=== PATIENT | female | born 1945 | race Caucasian/White ===

== ENCOUNTER 2018-02-24 18:22 | Inpatient (IN) | payer MEDICARE, OTHER ==
[2018-02-24] VITALS: BP 201/210
[~2018-02-24] VITALS: Ht 157.5 cm; Wt 111.6 kg
--- NOTE | 2018-02-24 18:30 | NUR ---
NEW IV STARTED ON LEFT FA, 20G. BLOOD DRAWN AND SENT TO LAB
--- NOTE | 2018-02-24 18:41 | NUR ---
LEATHER COVERER AT BEDSIDE.
--- NOTE | 2018-02-24 18:42 | NUR ---
PATIENT TAKEN TO CT VIA STRETCHER.
[2018-02-24 18:47] LABS: BASOPHILS # (AUTO) 0.2 /CMM (0.0-0.2); BASOPHILS % (AUTO) 1.3 % (0.0-2.0); EOSINOPHILS % (AUTO) 1.1 % (0.0-6.0); HEMATOCRIT 42 % (33-45); LYMPHOCYTES # (AUTO) 1.8 /CMM (0.8-4.8); LYMPHOCYTES % (AUTO) 15.2 % (20.0-44.0); MEAN CORPUSCULAR HGB CONC 34 g/dl (31.0-36.0); MEAN CORPUSCULAR VOLUME 92 fL (82-100); MONOCYTES # (AUTO) 0.8 /CMM (0.1-1.30); MONOCYTES % (AUTO) 6.5 % (2.0-12.0); NEUTROPHILS # (AUTO) 9.1 /CMM (1.8-8.9); NEUTROPHILS % (AUTO) 75.9 % (43.0-81.0); PLATELET COUNT (AUTO) 349 /CMM (150-450); RDW COEFFICIENT OF VARIATION 13.6 (11.5-15.0); RED BLOOD CELL COUNT(AUTO) 4.52 MIL/uL (4.0-5.2)
--- NOTE | 2018-02-24 18:58 | NUR ---
PATIENT RETURNED FROM CT IN STABLE CONDITION.
[2018-02-24 19:01] LABS: CALCIUM, SERUM 9.8 mg/dL (8.5-10.1); CARBON DIOXIDE 30 mmol/L (21-32); CHLORIDE 100 mmol/L (98-107); CREATININE 1.1 mg/dL (0.6-1.3); GLUCOSE 331 mg/dL (74-106); POTASSIUM 4.2 mmol/L (3.5-5.1); SODIUM SERUM 138 mmol/L (136-145); UREA NITROGEN, BLOOD 27 mg/dL (7-18)
[2018-02-24 19:07] LABS: ALANINE AMINOTRANSFERASE 27 U/L (12-78); ALBUMIN 3.9 g/dL (3.4-5.0); ALKALINE PHOSPHATASE 118 U/L (46-116); ASPARTATE AMINOTRANSFERASE 17 U/L (15-37); BILIRUBIN,DIRECT 0.1 mg/dL (0.0-0.2); BILIRUBIN,TOTAL 0.6 mg/dL (0.2-1.0); TOTAL PROTEIN, SERUM 7.8 g/dL (6.4-8.2)
[2018-02-24 19:08] LABS: TROPONIN I < 0.017 ng/mL (0.00-0.056)
--- NOTE | 2018-02-24 19:10 | NUR ---
URINE OBTAINED AND SENT TO LAB.
--- NOTE | 2018-02-24 19:19 | NUR ---
PER DR. HERBERT, CANCEL MEDEIROS CATH. NOT REQUIRED TO COLLECT URINE AT THIS TIME.
--- NOTE | 2018-02-24 19:20 | NUR ---
REPORT GIVEN TO RAY FOR JOSSELYN.
[2018-02-24 19:21] LABS: INR 0.96 (0.87-1.13)
[2018-02-24] MEDS ORDERED: INSULIN REGULAR, HUMAN 100 UNIT/ML 10 ML VIAL SQ ONE (19:30)
--- NOTE | 2018-02-24 19:47 | NUR ---
EDDIE PAGED, DR.SAM Cook HIDE SELECTOR
[2018-02-24] MEDS ORDERED: INSULIN REGULAR, HUMAN 100 UNIT/ML 10 ML VIAL ONE (19:55)
[2018-02-24] MEDS ORDERED: ASPIRIN 325 MG TABLET ONE (19:55)
[2018-02-24] MEDS ORDERED: ASPIRIN 325 MG TABLET PO ONE (20:00)
--- NOTE | 2018-02-24 20:02 | NUR ---
PT REC'D MEDICATION ORDERED.
--- NOTE | 2018-02-24 20:22 | NUR ---
PT'S CAREGIVER, RAFA, MOISE. PT IS ON THE MONITOR AND CONTINUOUS PULSE OX.
[2018-02-24 20:51] LABS: THYROID STIMULATING HORMONE 2.758 uIU/mL (0.358-3.74)
[2018-02-24] MEDS ORDERED: ACETAMINOPHEN 325 MG TABLET PO PRN (21:00)
[2018-02-24] MEDS ORDERED: MAG HYDROX/AL HYDROX/SIMETH 30 ML UDC PO PRN (21:00)
--- NOTE | 2018-02-24 21:11 | NUR ---
REPORT GIVEN TO TELE NURSE.
[2018-02-24 21:30] VITALS: BP 203/214
--- NOTE | 2018-02-24 21:30 | NUR ---
ADMISSION NOTES: KRISTY WELLINGTON RECEIVED REPORT FROM RAY FROM ER . PT BEING ADMITTED FOR TIA, PT WAS BROUGHT TO THE UNIT VIA GURNEY, A/O X3 ON RA RESPIRATION EVEN AND UNLABORED. LFA IV ACCESS PATENT AND FLUSHING WELL, ON HL. PT NOTED TO HAVE RIGHT FACIAL DROOP, PT USES GLASSES FOR READING. VS TAKEN AND RECORDED. BED BATH PROVIDED TO THE PT, SKIN ASSESSMENT PERFORMED WITH KRISTY WELLINGTON. PLACED ON TELE MONITORING, NEW ONSET AFIB HR 85. ORIENTED PT TO UNIT POLICY AND HOURLY ROUNDING, AND USE OF CALL LIGHT. INVENTORY OF BELONGING COMPLETED BY CUSTOMER DEVELOPMENT MANAGER, FOUND 6MEDICATION BOTTLES, PT AGREE TO SEND IT TO PHARMACY. PT DENIES ANY CHEST PAIN OR DISCOMFORT AT THIS TIME. WT TAKEN USING BED SCALE 246.2LBS. HR 5FT 2INCHES. PT LIVES WITH FAMILY AND USES WALKER ASSISTIVE DEVICE. PT ABLE TO AMBULATE WITH ASSISTANCE. SAFETY PRECAUTIONS FOR FALL INITIATED, CALL LIGHT IN REACH, WILL CONTINUE MONITORING PT. Addendum: 02/25/18 at 0223 by SEAN GRIMM RN CORRECTION OF ENTRY: LEFT FACIAL DROOP THAT ACCORDING TO THE PT, IS BEEN AN ISSUE FROM THE PAST
--- NOTE | 2018-02-24 21:31 | NUR ---
ADMISSION NOTES: KRISTY WELLINGTON RECEIVED REPORT FROM RAY FROM ER . PT BEING ADMITTED FOR TIA, PT WAS BROUGHT TO THE UNIT VIA GURNEY, A/O X3 ON RA RESPIRATION EVEN AND UNLABORED. LFA IV ACCESS PATENT AND FLUSHING WELL, ON HL. PT NOTED TO HAVE LEFT FACIAL DROOP, BUT PT CLAIMED SHE HAS IT FROM BEFORE, SPEECH A LOT BETTER, NOT SLURRED, NO WEAKNESS ON ARMS OR LEG NOTED,PT USES GLASSES FOR READING. VS TAKEN AND RECORDED. BED BATH PROVIDED TO THE PT, SKIN ASSESSMENT PERFORMED WITH KRISTY WELLINGTON. PLACED ON TELE MONITORING, NEW ONSET AFIB HR 85. ORIENTED PT TO UNIT POLICY AND HOURLY ROUNDING, AND USE OF CALL LIGHT. INVENTORY OF BELONGING COMPLETED BY MANAGER DATA WAREHOUSING, FOUND 6MEDICATION BOTTLES, PT AGREE TO SEND IT TO PHARMACY. PT DENIES ANY CHEST PAIN OR DISCOMFORT AT THIS TIME. WT TAKEN USING BED SCALE 246.2LBS. HR 5FT 2INCHES. PT LIVES WITH FAMILY AND USES WALKER ASSISTIVE DEVICE. PT ABLE TO AMBULATE WITH ASSISTANCE. SAFETY PRECAUTIONS FOR FALL INITIATED, CALL LIGHT IN REACH, WILL CONTINUE MONITORING PT.
[2018-02-24 21:48] VITALS: BP 200/112
[2018-02-24] MEDS: ENOXAPARIN SODIUM 40 MG/0.4 ML DISP.SYRIN SQ SCH (21:48)
--- NOTE | 2018-02-24 21:50 | NUR ---
RN NOTES: PT'S BLOOD PRESSURE NOTED TO BE ELEVATED 200/112 HR 83, 98% ON RA, RR 18, 98.2 TEMP, WILL RECHECK PT'S BLOOD PRESSURE
--- NOTE | 2018-02-24 21:50 | NUR ---
RN NOTES; CHECKED PT'S HOME MED LIST, NONE WAS ENTERED IN THE COMPUTER, ASKED DOWEL POINTER WHAT IS THE REPORT FROM RAY, PER DOWEL POINTER ACCORDING TO [employer] ASSEMBLY MACHINE TENDER, THEY'RE NOT ABLE TO ENTER MEDICATION LIST OF THE PT BECAUSE "THEY ARE BUSY IN ER AND THERE'S ONLY 3STAFF".
[2018-02-24] MEDS ORDERED: BLOOD SUGAR DIAGNOSTIC 1 EACH STRIP IN SCH (22:00)
--- NOTE | 2018-02-24 22:00 | NUR ---
RECEIVED PT FROM FROM [facility] AT 2200, PT IS HARSHA, ON BED WITH ON GOING DIRECTOR WRITING AT BED SIDE. ABLE TO BRIEFLY TALK TO THE PT AOX3 LAUGHING WELL SMILING, BP UPON ADMITTION 203/214, 81 RR 18 98% AND 98.6 TEMP. DENIES ANY SOB OR CHEST PAIN, NO DIFFICULTY WITH SWALLOWING, ABLE TO TAKE PO MEDS ORDERED BY DR PAEZ. ELEVATED BP REPORTED TO DR PAEZ BY ALIX WITH ORDER TO GIVE CLONODINE 0.1 MG. ASSESSED PT LEFT EYE APPEAR LAZY LOOKING IN THE RIGHT DIRECTION. BUT ABLE TO REFOCUS BOTH EYES TO FOLLOW COMMAND, NO FACIAL DROOP NOTED, BUE AND BLE WNR EVEN STRENGTH BILATERALLY. PT AMBULATORY WILL CONT TO MONITOR.
[2018-02-24] MEDS ORDERED: LABE200T5 PO (22:01)
[2018-02-24] MEDS ORDERED: AMYL1CAP58 PO (22:01)
[2018-02-24] MEDS ORDERED: GLIM4TAB2 PO (22:01)
[2018-02-24] MEDS ORDERED: TRIA1CAP6 PO (22:01)
[2018-02-24] MEDS ORDERED: LINA5TAB PO (22:01)
[2018-02-24] MEDS ORDERED: VALS160T2 PO (22:01)
--- NOTE | 2018-02-24 22:02 | NUR ---
RN NOTES: ALL HOME MED LIST INPUTTED IN PT'S MAR FOR MD TO RECONCILE
--- NOTE | 2018-02-24 22:15 | NUR ---
RN NOTES: NO BP MEDICATION GIVEN IN ER, ALTHOUGH PT'S BP NOTED TO BE 220/118, 188/108, PER REPORT THAT EAP COUNSELOR RECEIVED LOWEST BP GOT IN ER WAS AROUND 160. BUT NO INTERVENTION GIVEN TO MANAGE BLOOD PRESSURE. WILL CALL [facility] ORGAN FIXER
--- NOTE | 2018-02-24 22:20 | NUR ---
RN NOTES: CONTACTED [facility] TEACHING MANAGER, REGARDING PT'S BLOOD PRESSURE, AND BS 249, AWAITING FOR CALL BACK
--- NOTE | 2018-02-24 22:29 | NUR ---
RN NOTES: RECEIVED CALL FROM [facility] MANAGER COMMER[employer], PER MD TO ADMIT PT IN TELE-TD, GIVE CLONIDINE 0.1MG TAB PO Q6HRS PRN FOR SBP GREATER THAN 180, ALSO MADE AWARE OF BLOOD SUGAR 249, PER MD TO START PT ON INSULIN MILD SLIDING SCALE ACHS
[2018-02-24] MEDS ORDERED: DEXTROSE 50%-WATER 50 ML DISP.SYRIN IV PRN (22:30)
--- NOTE | 2018-02-24 22:40 | NUR ---
RN NOTES: PT IN BED, CAROTID DUPLEX IMAGING BEING PERFORMED, PT DENIES ANY PAIN OR DISCOMFORT AT THIS TIME. RESPIRATION EVEN AND UNLABORED. ON NEW ONSET AFIB HR 85. REPORT GIVEN TO ALEXIS WAGNER FOR CONTINUITY OF CARE
[2018-02-24 23:04] LABS: BASOPHILS # (AUTO) 0.1 /CMM (0.0-0.2); BASOPHILS % (AUTO) 0.5 % (0.0-2.0); EOSINOPHILS % (AUTO) 1.2 % (0.0-6.0); HEMATOCRIT 41 % (33-45); HEMOGLOBIN 13.7 g/dL (11.5-14.8); LYMPHOCYTES % (AUTO) 17.5 % (20.0-44.0); MEAN CORPUSCULAR HGB CONC 34 g/dl (31.0-36.0); MEAN CORPUSCULAR VOLUME 92 fL (82-100); MONOCYTES # (AUTO) 0.8 /CMM (0.1-1.30); MONOCYTES % (AUTO) 7.2 % (2.0-12.0); NEUTROPHILS # (AUTO) 8.5 /CMM (1.8-8.9); NEUTROPHILS % (AUTO) 73.6 % (43.0-81.0); PLATELET COUNT (AUTO) 336 /CMM (150-450); RDW COEFFICIENT OF VARIATION 13.8 (11.5-15.0); RED BLOOD CELL COUNT(AUTO) 4.47 MIL/uL (4.0-5.2); WHITE BLOOD COUNT (AUTO) 11.6 K/uL (4.3-11.0)
[2018-02-24 23:14] LABS: CALCIUM, SERUM 9.8 mg/dL (8.5-10.1); CARBON DIOXIDE 31 mmol/L (21-32); CHLORIDE 102 mmol/L (98-107); GLUCOSE 178 mg/dL (74-106); POTASSIUM 3.8 mmol/L (3.5-5.1); SODIUM SERUM 138 mmol/L (136-145); UREA NITROGEN, BLOOD 26 mg/dL (7-18)
[2018-02-24] MEDS: SIMVASTATIN 40 MG TABLET PO SCH (23:15)
[2018-02-24] MEDS: CLONIDINE HCL 0.1 MG TABLET PO PRN (23:21)
[2018-02-24 23:26] LABS: ALANINE AMINOTRANSFERASE 28 U/L (12-78); ALBUMIN 3.8 g/dL (3.4-5.0); ALKALINE PHOSPHATASE 108 U/L (46-116); ASPARTATE AMINOTRANSFERASE 18 U/L (15-37); B-TYPE NATRIURETIC PEPTIDE 1150 PG/ML (0-125); BILIRUBIN,TOTAL 0.5 mg/dL (0.2-1.0); TOTAL PROTEIN, SERUM 7.6 g/dL (6.4-8.2)
[2018-02-24] MEDS: BLOOD SUGAR DIAGNOSTIC 1 EACH STRIP IN SCH (23:26)
[2018-02-24 23:27] LABS: CHOLESTEROL 238 mg/dL (<200); CREATINE KINASE, TOTAL 48 U/L (26-192); HDL CHOLESTEROL 50 mg/dL (40-60); LDL 164 mg/dL (0-99); THYROID STIMULATING HORMONE 2.847 uIU/mL (0.358-3.74); TRIGLYCERIDES 99 mg/dL (30-150)
[2018-02-24 23:30] LABS: INR 0.97 (0.87-1.13)
[2018-02-24 23:54] LABS: APPEARANCE,URINE CLEAR (CLEAR); BILIRUBIN,URINE NEGATIVE (NEGATIVE); BLOOD, URINE NEGATIVE Ery/uL (NEGATIVE); COLOR,URINE YELLOW (YELLOW); KETONES,URINE NEGATIVE (NEGATIVE); LEUKOCYTE ESTERASE ,URINE NEGATIVE (NEGATIVE); NITRITE, URINE POSITIVE (NEGATIVE); PROTEIN,URINE NEGATIVE (NEGATIVE); UGLUCOSE 2+ mg/dL (NEGATIVE); UROBILINOGEN,URINE 0.2 EU/dL (0.2)
[2018-02-24 23:59] LABS: BACTERIA,URINE Many /HPF (None Seen); RBC,URINE 0-2 /HPF (0-2); SQUAMOUS EPITHELIAL CELL,UR Few /HPF (None Seen)
[2018-02-25] VITALS: BP 203/214
[2018-02-25] MEDS ORDERED: BLOOD SUGAR DIAGNOSTIC 1 EACH STRIP IN SCH
[2018-02-25 04:00] VITALS: BP 149/83
[2018-02-25 06:31] LABS: BASOPHILS # (AUTO) 0.1 /CMM (0.0-0.2); BASOPHILS % (AUTO) 0.6 % (0.0-2.0); EOSINOPHILS % (AUTO) 2.2 % (0.0-6.0); HEMATOCRIT 38 % (33-45); HEMOGLOBIN 12.9 g/dL (11.5-14.8); LYMPHOCYTES # (AUTO) 2.2 /CMM (0.8-4.8); LYMPHOCYTES % (AUTO) 20.4 % (20.0-44.0); MEAN CORPUSCULAR HGB CONC 34 g/dl (31.0-36.0); MEAN CORPUSCULAR VOLUME 91 fL (82-100); NEUTROPHILS # (AUTO) 7.3 /CMM (1.8-8.9); NEUTROPHILS % (AUTO) 67.8 % (43.0-81.0); PLATELET COUNT (AUTO) 309 /CMM (150-450); RDW COEFFICIENT OF VARIATION 13.8 (11.5-15.0); WHITE BLOOD COUNT (AUTO) 10.8 K/uL (4.3-11.0)
--- NOTE | 2018-02-25 06:33 | NUR ---
RN HARSHA CLOSING NOTE ENDORSED PT TO AM SHIFT NURSE, NATHAN WNR, CONT ON RM AIR, DENIES ANY DISCOMFORT OR PAIN, ASSESSED FOR DEFICITS R/T STROKE, NON NOTED, SEEN BY DR PAEZ AND ASSESSED, NO DEFICITS NOTED, WILL ENDORSE TO AM SHIFT TO CONT MONITORING PT BP AND BLOOD SUGAR. SAFETY MEASURES IN PLACE.
[2018-02-25 06:57] LABS: INR 1.02 (0.87-1.13)
[2018-02-25 07:23] LABS: CALCIUM, SERUM 9.1 mg/dL (8.5-10.1); CARBON DIOXIDE 29 mmol/L (21-32); CHLORIDE 103 mmol/L (98-107); CREATININE 0.9 mg/dL (0.6-1.3); GLUCOSE 112 mg/dL (74-106); POTASSIUM 3.5 mmol/L (3.5-5.1); SODIUM SERUM 141 mmol/L (136-145); UREA NITROGEN, BLOOD 24 mg/dL (7-18)
[2018-02-25 07:26] LABS: CHOLESTEROL 214 mg/dL (<200); HDL CHOLESTEROL 68 mg/dL (40-60); LDL 151 mg/dL (0-99); TRIGLYCERIDES 104 mg/dL (30-150)
[2018-02-25] MEDS: BLOOD SUGAR DIAGNOSTIC 1 EACH STRIP IN SCH ×4 (07:30→22:00)
--- NOTE | 2018-02-25 07:30 | NUR ---
RN HARSHA Received Pt.in bed asleep, No s/s of distress breathing even and unlabored on room air,On stroke monitoring.will continue to monitor for changes.I.V site CDI and patent.
[2018-02-25 08:00] VITALS: BP 166/96
[2018-02-25] MEDS: PANTOPRAZOLE 40 MG TABLET.DR PO SCH (08:39)
[2018-02-25] MEDS: DOCUSATE SODIUM 100 MG CAPSULE PO SCH (08:39)
[2018-02-25] MEDS: LINAGLIPTIN 5 MG TABLET PO SCH (08:39)
[2018-02-25] MEDS: ASPIRIN EC 325 MG TABLET.DR PO SCH (08:39)
[2018-02-25] MEDS: GLIMEPIRIDE 4 MG TABLET PO SCH (08:40)
[2018-02-25] MEDS: VALSARTAN 80 MG TABLET PO SCH (08:40)
[2018-02-25 12:00] VITALS: BP 170/95
[2018-02-25 16:00] VITALS: BP 182/93
[2018-02-25] MEDS: CLONIDINE HCL 0.1 MG TABLET PO PRN (17:22)
--- NOTE | 2018-02-25 19:40 | NUR ---
RN HARSHA INITIAL NOTE Received Pt.in bed asleep, No s/s of distress breathing even and unlabored on room air,On stroke monitoring.will continue to monitor for changes.I.V site CDI and patent.
--- NOTE | 2018-02-25 19:49 | NUR ---
PT. is stable condition.no s/s of distress.V/S WNL .Endorsed to next shift.All m.d orders noted and carried out.
[2018-02-25 20:00] VITALS: BP 153/86
[2018-02-25] MEDS: SIMVASTATIN 40 MG TABLET PO SCH (21:35)
[2018-02-25] MEDS: ENOXAPARIN SODIUM 40 MG/0.4 ML DISP.SYRIN SQ SCH (21:39)
[2018-02-25] MEDS: INSULIN REGULAR, HUMAN 100 UNIT/ML 3 ML VIAL SQ PRN (21:47)
--- NOTE | 2018-02-25 22:15 | NUR ---
2215 NOTED MRI BRAIN RESULTS NOT REPORTED TO DR OLIVEIRA, CALLED MD'S OFFICE AND EXCHANGE TO REPORT RESULTS, ONLY VOICE MAIL . CALLED [facility] SPOKE TO DR PAEZ WHO HAPPEN TO HAVE ADMITTED THE PT, READ MRI RESULTS TO HIM, SUGGESTED FOR LONG NO DEFICITS NOTED, CONT TO MONITOR.
[2018-02-26] VITALS: BP 152/76
[2018-02-26 04:00] VITALS: BP 169/72
[2018-02-26] MEDS: CLONIDINE HCL 0.1 MG TABLET PO PRN ×2 (05:24→20:36)
[2018-02-26 06:20] LABS: BASOPHILS % (AUTO) 0.5 % (0.0-2.0); EOSINOPHILS % (AUTO) 1.9 % (0.0-6.0); HEMATOCRIT 39 % (33-45); HEMOGLOBIN 13.5 g/dL (11.5-14.8); LYMPHOCYTES # (AUTO) 2.3 /CMM (0.8-4.8); LYMPHOCYTES % (AUTO) 22.4 % (20.0-44.0); MEAN CORPUSCULAR HGB CONC 34 g/dl (31.0-36.0); MEAN CORPUSCULAR VOLUME 90 fL (82-100); MONOCYTES # (AUTO) 0.9 /CMM (0.1-1.30); MONOCYTES % (AUTO) 8.6 % (2.0-12.0); NEUTROPHILS # (AUTO) 6.7 /CMM (1.8-8.9); NEUTROPHILS % (AUTO) 66.6 % (43.0-81.0); PLATELET COUNT (AUTO) 311 /CMM (150-450); RDW COEFFICIENT OF VARIATION 13.6 (11.5-15.0); RED BLOOD CELL COUNT(AUTO) 4.36 MIL/uL (4.0-5.2); WHITE BLOOD COUNT (AUTO) 10.1 K/uL (4.3-11.0)
[2018-02-26 06:43] LABS: CARBON DIOXIDE 30 mmol/L (21-32); CHLORIDE 101 mmol/L (98-107); GLUCOSE 104 mg/dL (74-106); MAGNESIUM 1.7 mg/dL (1.8-2.4); PHOSPHORUS 3.7 mg/dL (2.5-4.9); POTASSIUM 3.3 mmol/L (3.5-5.1); SODIUM SERUM 140 mmol/L (136-145); UREA NITROGEN, BLOOD 22 mg/dL (7-18)
--- NOTE | 2018-02-26 06:46 | NUR ---
KRISTY HARSHA CLOSING NOTE CLONODINE 0.1 MG PO GIVEN PRN, BP169/72, 87. Addendum: 02/26/18 at 0652 by GALLO BRUSH RN WILL ENDORSE TO AM SHIFT TO CONT MONITORING PT VS.
--- NOTE | 2018-02-26 07:30 | NUR ---
HARSHA RN AM NOTES RECEIVED PATIENT IN BED , AAO X3, ON RA, NOT IN ANY DISTRESS, AFIB HR 78 ON MONITOR, DENIES ANY CHEST PAIN OR DISCOMFORT, LFA G 22 FLUSHES WELL, SITE CLEAR, SOFT DIET, BRP, BED IN LOWEST AND LOCKED POSITION, CALL LIGHT WITHIN REACH. SAFETY MEASURES IN PLACE. WILL CONTINUE TO MONITOR.
[2018-02-26 08:00] VITALS: BP 174/81
[2018-02-26] MEDS: PANTOPRAZOLE 40 MG TABLET.DR PO SCH (08:25)
[2018-02-26] MEDS: DOCUSATE SODIUM 100 MG CAPSULE PO SCH (08:25)
[2018-02-26] MEDS: ASPIRIN EC 325 MG TABLET.DR PO SCH (08:25)
[2018-02-26] MEDS: GLIMEPIRIDE 4 MG TABLET PO SCH (08:25)
[2018-02-26] MEDS: BLOOD SUGAR DIAGNOSTIC 1 EACH STRIP IN SCH ×4 (08:25→21:21)
[2018-02-26] MEDS: LINAGLIPTIN 5 MG TABLET PO SCH (08:25)
--- NOTE | 2018-02-26 08:25 | NUR ---
HARSHA RN NOTES ACCUCHECK DONE. BS 224 MG/DL. ADMINISTERED 4 U HUM RPER SS.
[2018-02-26] MEDS: VALSARTAN 80 MG TABLET PO SCH (08:26)
[2018-02-26] MEDS: INSULIN REGULAR, HUMAN 100 UNIT/ML 3 ML VIAL SQ PRN ×3 (08:34→21:25)
--- NOTE | 2018-02-26 09:30 | NUR ---
HARSHA RN NOTES DUE MEDS GIVEN.
[2018-02-26] MEDS: Magnesium 1GM/D5W 100ML PREMIX 100 ML IV SCH ×2 (09:40→11:03)
--- NOTE | 2018-02-26 09:40 | NUR ---
HARSHA RN NOTES MAGNESIUM BAG #1 STARTED.
[2018-02-26] MEDS ORDERED: POTASSIUM CHLORIDE 20 MEQ POWDER PACKET PO SCH (10:00)
--- NOTE | 2018-02-26 11:03 | NUR ---
HARSHA RN NOTES MAGNESIUM BAG #2 STARTED.
[2018-02-26 12:00] VITALS: BP 167/89
--- NOTE | 2018-02-26 12:03 | NUR ---
HARSHA RN NOTES ACCUCHECK DONE. BS 163 MG/DL. ADMINISTERED 3 U HUM R PER SS.
[2018-02-26 16:00] VITALS: BP 158/84
--- NOTE | 2018-02-26 17:16 | NUR ---
HARSHA RN NOTES ACCUCHECK DONE. BS 116 MG/DL. NO INSULIN COVERAGE GIVEN.
--- NOTE | 2018-02-26 17:21 | NUR ---
HARSHA RN NOTES STARTED ZOSYN IV.
[2018-02-26 20:00] VITALS: BP 163/90
[2018-02-26] MEDS: ENOXAPARIN SODIUM 40 MG/0.4 ML DISP.SYRIN SQ SCH (20:39)
[2018-02-26] MEDS: SIMVASTATIN 40 MG TABLET PO SCH (21:24)
[2018-02-27] VITALS: BP_SYST 158; BP_SYST 161; BP_DIAS 83; BP_DIAS 92
--- NOTE | 2018-02-27 00:41 | NUR ---
RN NOTES PATIENT REFUSING TELE MONITOR AT THIS TIME. EXPLAINED RISKS AND BENEFITS AND STILL REFUSED. WILL OFFER AGAIN.
[2018-02-27] MEDS: CLONIDINE HCL 0.1 MG TABLET PO PRN ×2 (01:37→17:39)
--- NOTE | 2018-02-27 03:45 | NUR ---
HARSHA RN NOTES PATIENT REFUSED TO TAKE PHOTO OF SKIN ISSUES. EXPLAINED RISKS AND BENEFITS 3 X AND STILL REFUSED
[2018-02-27 04:00] VITALS: BP 160/87
[2018-02-27] MEDS: BLOOD SUGAR DIAGNOSTIC 1 EACH STRIP IN SCH ×4 (07:46→21:48)
[2018-02-27] MEDS: INSULIN REGULAR, HUMAN 100 UNIT/ML 3 ML VIAL SQ PRN ×2 (07:47→11:41)
[2018-02-27] MEDS: PANTOPRAZOLE 40 MG TABLET.DR PO SCH (07:48)
--- NOTE | 2018-02-27 07:55 | NUR ---
RN NOTE RECEIVED PATIENT IN BED, ALERT AND ORIENTED X4, SHE IS ABLE TO MAKE THINGS KNOWN AND VERBALIZE NEEDS. BREATHING EVEN AND UNLABORED WITH NO DISTRESS NOTED. SHE IS ABLE TO AMBULATE WITH ASSISTANCE. PATIENT COOPERATIVE AND COMPLIANT. ON CARDIACMONITOR OF A-FIB HR 85, LEFT FA IV SITE INTACT AND PATENT. PATIENT DENIES ANY PAIN OR DISCOMFORT AT THIS TIME. BED LOCK AND LOW POSITION. PLACED CALL LIGHT WITHIN REACH. WILL CONTINUE TO MONITOR.
[2018-02-27 08:00] VITALS: BP_SYST 127; BP_SYST 167; BP_DIAS 56; BP_DIAS 82
[2018-02-27 08:24] LABS: CALCIUM, SERUM 9.2 mg/dL (8.5-10.1); CARBON DIOXIDE 29 mmol/L (21-32); CHLORIDE 101 mmol/L (98-107); CREATININE 1.1 mg/dL (0.6-1.3); GLUCOSE 168 mg/dL (74-106); MAGNESIUM 1.9 mg/dL (1.8-2.4); POTASSIUM 3.6 mmol/L (3.5-5.1); SODIUM SERUM 140 mmol/L (136-145); UREA NITROGEN, BLOOD 26 mg/dL (7-18)
[2018-02-27] MEDS: DOCUSATE SODIUM 100 MG CAPSULE PO SCH (08:26)
[2018-02-27] MEDS: GLIMEPIRIDE 4 MG TABLET PO SCH (08:26)
[2018-02-27] MEDS: LINAGLIPTIN 5 MG TABLET PO SCH (08:27)
[2018-02-27] MEDS: VALSARTAN 80 MG TABLET PO SCH (08:27)
[2018-02-27] MEDS: ASPIRIN EC 325 MG TABLET.DR PO SCH (08:27)
[2018-02-27 12:00] VITALS: BP 155/92
[2018-02-27 16:00] VITALS: BP 157/94
[2018-02-27 20:00] VITALS: BP 177/92
[2018-02-27] MEDS: SIMVASTATIN 40 MG TABLET PO SCH (21:48)
[2018-02-27] MEDS: ENOXAPARIN SODIUM 40 MG/0.4 ML DISP.SYRIN SQ SCH (21:52)
[2018-02-28] VITALS (8 sets, daily range): BP systolic 144–158; BP diastolic 61–95
--- NOTE | 2018-02-28 06:40 | NUR ---
RN NOTE PT REMAINS IN NO ACUTE DISTRESS IN BED. PT DID NOT HAVE ANY SIGNIFICANT CHANGE IN CONDITION DURING SHIFT. PT DID NOT SHOW ANY S/S OF ANY NEW DEFICITS DURING SHIFT. ALL NEEDS MET, ALL ORDERS CARRIED OUT. WILL ENDORSE CARE TO AM RN FOR CONTINUITY OF CARE.
[2018-02-28 06:53] LABS: CALCIUM, SERUM 8.9 mg/dL (8.5-10.1); CARBON DIOXIDE 28 mmol/L (21-32); CHLORIDE 102 mmol/L (98-107); GLUCOSE 174 mg/dL (74-106); MAGNESIUM 1.8 mg/dL (1.8-2.4); PHOSPHORUS 3.4 mg/dL (2.5-4.9); POTASSIUM 3.5 mmol/L (3.5-5.1); SODIUM SERUM 140 mmol/L (136-145); UREA NITROGEN, BLOOD 29 mg/dL (7-18)
[2018-02-28 07:12] LABS: BASOPHILS # (AUTO) 0.1 /CMM (0.0-0.2); BASOPHILS % (AUTO) 0.6 % (0.0-2.0); EOSINOPHILS % (AUTO) 3.1 % (0.0-6.0); HEMATOCRIT 42 % (33-45); HEMOGLOBIN 14.3 g/dL (11.5-14.8); LYMPHOCYTES # (AUTO) 1.7 /CMM (0.8-4.8); LYMPHOCYTES % (AUTO) 20.6 % (20.0-44.0); MEAN CORPUSCULAR HGB CONC 34 g/dl (31.0-36.0); MEAN CORPUSCULAR VOLUME 91 fL (82-100); MONOCYTES # (AUTO) 0.9 /CMM (0.1-1.30); MONOCYTES % (AUTO) 10.2 % (2.0-12.0); NEUTROPHILS # (AUTO) 5.5 /CMM (1.8-8.9); NEUTROPHILS % (AUTO) 65.5 % (43.0-81.0); PLATELET COUNT (AUTO) 329 /CMM (150-450); RDW COEFFICIENT OF VARIATION 13.4 (11.5-15.0); RED BLOOD CELL COUNT(AUTO) 4.63 MIL/uL (4.0-5.2); WHITE BLOOD COUNT (AUTO) 8.4 K/uL (4.3-11.0)
--- NOTE | 2018-02-28 07:45 | NUR ---
RN NOTE RECEIVED PATIENT IN BED, ALERT AND ORIENTED X4, SHE IS ABLE TO MAKE THINGS KNOWN AND VERBALIZE NEEDS. BREATHING EVEN AND UNLABORED WITH NO DISTRESS NOTED. SHE IS ABLE TO AMBULATE WITH ASSISTANCE. PATIENT COOPERATIVE AND COMPLIANT. ON CARDIACMONITOR OF A-FIB HR 84, LEFT FA IV SITE INTACT AND PATENT. PATIENT DENIES ANY PAIN OR DISCOMFORT AT THIS TIME. BED LOCK AND LOW POSITION. ALL SAFETY MEASURES DONE. PLACED CALL LIGHT WITHIN REACH. WILL CONTINUE TO MONITOR.
[2018-02-28] MEDS: BLOOD SUGAR DIAGNOSTIC 1 EACH STRIP IN SCH ×4 (07:53→21:50)
[2018-02-28] MEDS: PANTOPRAZOLE 40 MG TABLET.DR PO SCH (07:53)
[2018-02-28] MEDS: INSULIN REGULAR, HUMAN 100 UNIT/ML 3 ML VIAL SQ PRN ×4 (07:56→21:49)
[2018-02-28] MEDS: GLIMEPIRIDE 4 MG TABLET PO SCH (08:48)
[2018-02-28] MEDS: DOCUSATE SODIUM 100 MG CAPSULE PO SCH (08:48)
[2018-02-28] MEDS: ASPIRIN EC 325 MG TABLET.DR PO SCH (08:48)
[2018-02-28] MEDS: LINAGLIPTIN 5 MG TABLET PO SCH (08:48)
[2018-02-28] MEDS: VALSARTAN 80 MG TABLET PO SCH (08:49)
--- NOTE | 2018-02-28 18:56 | NUR ---
RN NOTE PATIENT REMAINED STABLE THROUGHOUT SHIFT. NO ACUTE DISTRESS OR DISCOMFORT NOTED. WILL ENDORSE TO NEXT SHIFT TO CONTINUE CONTINUITY OF CARE.
--- NOTE | 2018-02-28 19:30 | NUR ---
MS/NOTES: RECEIVED PT. IN BED W/ HOB ELEVATED. A/O X 4. CONTINENT OF B/B. BRP. LFA G 20 PATENT AND INTACT W/ NO S/S OF INFECTION/INFILTRATION NOTED. DENIES ANY C/O PAIN OR SOB AT PRESENT. WILL CONTINUE TO MONITOR.
[2018-02-28] MEDS: CEPHALEXIN MONOHYDRATE 500 MG CAPSULE PO SCH (21:44)
[2018-02-28] MEDS: ENOXAPARIN SODIUM 40 MG/0.4 ML DISP.SYRIN SQ SCH (21:44)
[2018-02-28] MEDS: SIMVASTATIN 40 MG TABLET PO SCH (22:02)
--- NOTE | 2018-03-01 07:28 | NUR ---
MS/ RN NOTES: NO ACUTE CHANGES NOTED DURING THIS SHIFT. REPORT GIVEN TO AM NURSE FOR JOSSELYN.
--- NOTE | 2018-03-01 07:38 | NUR ---
RN OPENING NOTES RECEIVED PATIENT IN BED RESTING,EASILY AROUSABLE DURING CARE A/OX4. NO ACUTE DISTRESS, NO SOB, DENIED PAIN OR DISCOMFORT AT THIS TIME. IV SITE INTACT AND PATENT, NO REDNESS OR INFILTRATION NOTED. KEPT PATIENT CLEAN, SAFE AND COMFORTABLE. BED IN LOW/LOCKED POSITION, SIDERAILS UPX2, CALL LIGHT IN REACH. WILL CONTINUE TO MONITOR .
[2018-03-01] MEDS: BLOOD SUGAR DIAGNOSTIC 1 EACH STRIP IN SCH ×2 (07:51→12:06)
[2018-03-01] MEDS: INSULIN REGULAR, HUMAN 100 UNIT/ML 3 ML VIAL SQ PRN ×2 (07:54→12:08)
[2018-03-01 08:00] VITALS: BP 142/64
[2018-03-01] MEDS: DOCUSATE SODIUM 100 MG CAPSULE PO SCH (08:22)
[2018-03-01 08:23] VITALS: BP 142/64
[2018-03-01] MEDS: VALSARTAN 80 MG TABLET PO SCH (08:23)
[2018-03-01] MEDS: LINAGLIPTIN 5 MG TABLET PO SCH (08:23)
[2018-03-01] MEDS: GLIMEPIRIDE 4 MG TABLET PO SCH (08:23)
[2018-03-01] MEDS: ASPIRIN EC 325 MG TABLET.DR PO SCH (08:23)
[2018-03-01] MEDS: CEPHALEXIN MONOHYDRATE 500 MG CAPSULE PO SCH (08:23)
[2018-03-01] MEDS: PANTOPRAZOLE 40 MG TABLET.DR PO SCH (08:23)
[2018-03-01] MEDS ORDERED: SIMV40TA5 PO (12:20)
[2018-03-01] MEDS ORDERED: ASPI-605 PO (12:20)
[2018-03-01] MEDS ORDERED: CEPH500C2 PO (12:20)
--- NOTE | 2018-03-01 14:00 | NUR ---
WASHING TUB OPERATOR NOTES PATIENT IS AWAKE A/OX4, ABLE TO MAKE NEEDS KNOWN.RESPIRATIONS EVEN AND UNLABORED, NO ACUTE DISTRESS, DENIES ANY PAIN OR DISCOMFORT AT THIS TIME. IV SITE INTACT AND ID BAND REMOVED WITH NO ASE NOTED, PICTURES OF SKIN TAKEN AND PLACED IN CHART. PATIENT WITH DISCHARGE ORDERS ALL MEDICATIONS RETURNED TO PATIENT FROM PHARMACY AND DISCHARGE INSTRUCTIONS PROVIDED AND REVIEWED WITH VERBAL UNDERSTANDING NOTED. ALL BELONGINGS ACCOUNTED FOR, ASSISTED TO LOBBY BY RN, DISCHARGED IN STABLE CONDITION
== END 2018-03-01 13:53 | disposition home or self-care (01) | DRG 64 ==
LOC: ER 18:25 → TELE1 21:03 → TELE-TD 23:10 → MEDSG1 02-28 10:45
DX: I63.9 Cerebral infarction, unspecified (principal); N17.0 Acute kidney failure with tubular necrosis; E43 Unspecified severe protein-calorie malnutrition; G93.40 Encephalopathy, unspecified; N39.0 Urinary tract infection, site not specified; E11.65 Type 2 diabetes mellitus with hyperglycemia; I48.91 Unspecified atrial fibrillation; Z68.42 Body mass index [BMI] 45.0-49.9, adult; E03.9 Hypothyroidism, unspecified; D72.829 Elevated white blood cell count, unspecified; I10 Essential (primary) hypertension; E66.01 Morbid (severe) obesity due to excess calories; Z86.73 Personal history of transient ischemic attack (TIA), and cerebral infarction without residual deficits; E78.5 Hyperlipidemia, unspecified; B96.20 Unspecified Escherichia coli [E. coli] as the cause of diseases classified elsewhere
CPT/HCPCS: 36415; 70450-TC; 70551-TC; 71045-TC; 80048-TC; 80053-TC; 80061-TC; 80076-TC; 80305; 81000-TC; 82550-TC; 82962-TC; 83735-TC; 83880; 84100-TC; 84443-TC; 84484-TC; 85025-TC; 85652-TC; 85730-TC; 87081-TC; 87086-TC; 87186-TC; 92611-TC; 93307-TC; 93880-TC; A4606; J1650; J1815; J3475; Z7610